=== PATIENT | female | born 1985 | race Caucasian/White ===

== ENCOUNTER 2018-05-17 14:58 | Emergency (ER) | payer OTHER ==
[~2018-05-17] VITALS: Ht 162.6 cm; Wt 90.7 kg
[~2018-05-17 14:58] MED LIST: DOXYCYCLINE 10100 MG PO; HYDROCODON-ACE1 EACH PO; MUCINEX600 MG PO; NOHOMEMEDICATIONS; NORCO 5-325 TA1 EACH PO; PROAIR HFA8.5 GM PO
[2018-05-17 16:56] VITALS: BP 125/80
== END 2018-05-17 16:56 | disposition home or self-care (01) ==
LOC: M.ERS 14:58
DX: S61.211A Laceration without foreign body of left index finger without damage to nail, initial encounter (principal); W26.0XXA Contact with knife, initial encounter; Y93.89 Activity, other specified; Y92.89 Other specified places as the place of occurrence of the external cause; Y99.8 Other external cause status